=== PATIENT | female | born 1960 | race Caucasian/White ===

== ENCOUNTER 2016-08-23 08:16 | Emergency (ER) | payer BC ==
[~2016-08-23] VITALS: Ht 167.6 cm; Wt 68.0 kg
--- OUTSIDE RECORDS SUMMARY | 2016-08-23 08:20 | XMS REPORT ---
Author Author Charles Prieto Organization [employer] Address Unknown Phone Unavailable Care Team Providers Care Ocular Care Aide Name Role Phone Charles Prieto CP Unavailable Allergies No Known Allergies Problems Problem Type Condition Code Onset Dates Condition Status Problem Mitral stenosis I05.0 Active Problem Cardiac dysrhythmia I49.9 Active Problem Palpitations R00.2 Active Medications No Known Medications Results No Known Results Summary Purpose [employer] Submission
[2016-08-23] MEDS ORDERED: NITROGLYCERIN SUBLINGUAL 0.4 MG (NITROQUICK) TABLET SL PRN (08:35)
[2016-08-23] MEDS ORDERED: SODIUM CHLORIDE FLUSH 10 ML SYR IV PRN (08:35)
[2016-08-23] MEDS ORDERED: morphine INJ 4 MG/ML 1 ML SYRINGE IV PRN (08:35)
[2016-08-23] MEDS ORDERED: SODIUM CHLORIDE FLUSH 3 ML SYR IV PRN (08:35)
[2016-08-23] MEDS ORDERED: ASPIRIN 81 MG CHEW (CHILDREN'S ASA) PO ONE (08:35)
[2016-08-23] MEDS ORDERED: SODIUM CHLORIDE 250 ML IV PRN (08:35)
[2016-08-23 08:45] LABS: BASOPHILS % (AUTO) 0 % (0-2); EOSINOPHILS # (AUTO) 0.2 10^3uL; EOSINOPHILS % (AUTO) 2 % (0-4); LYMPHOCYTES # (AUTO) 2.1 X10^3; MEAN CORPUSCULAR HEMOGLOBIN 30.1 PG (26.0-34.0); MEAN CORPUSCULAR HGB CONC 33.1 g/dL (31.0-37.0); MEAN CORPUSCULAR VOLUME 91 FL (80-100); MEAN PLATELET VOLUME 10.1 FL (6.0-9.5); MONOCYTES # (AUTO) 0.7 X10^3; MONOCYTES % (AUTO) 9 % (3-11); NEUTROPHILS % (AUTO) 63 % (51-67); PLATELET COUNT 291 10^3uL (150-450); WHITE BLOOD COUNT 8.02 10^3uL (4.0-11.0)
[2016-08-23] MEDS ORDERED: DILTIAZEM IV FOR DRIP 125 MG in SODIUM CHLORIDE 100 ML IV PRN (08:50)
[2016-08-23] MEDS ORDERED: DILTIAZEM 25 MG/5 ML (CARDIZEM) VIAL IV ONE (08:50)
[2016-08-23] MEDS ORDERED: ENOXAPARIN 80 MG/0.8 ML (LOVENOX) SYR SC ONE (08:50)
[2016-08-23 08:56] LABS: ALBUMIN 3.9 g/dL (3.4-5.0); ALKALINE PHOSPHATASE 106 U/L (38-126); ANION GAP 15.5 MEQ/L (3-15); BUN/CREATININE RATIO 23 (10-20); CALCULATED IONIZED CALCIUM 4.1 mg/dL (3.8-4.6); CREATINE KINASE 83 U/L (30-135); TOTAL PROTEIN 7.3 g/dL (6.4-8.5)
[2016-08-23] MEDS ORDERED: MULT-954 PO (09:26)
[2016-08-23] MEDS ORDERED: ESTR10TA VG (09:26)
[2016-08-23] MEDS ORDERED: OMEG300C3 PO (09:26)
--- NOTE | 2016-08-23 09:26 | Diagnostic Imaging Report ---
EXAMINATION: Chest radiograph, portable AP view. DATE: August 23, 2016. hours. INDICATION: 55-year-old female, atrial fibrillation. COMPARISON: None. FINDINGS: Heart size and mediastinal contours are unremarkable. There is no identified pneumothorax. There is no large pleural effusion. There is no identified focal airspace consolidation. IMPRESSION: No identified acute cardiopulmonary abnormality. Dictated by: Dictated on workstation # [id number]
--- NOTE | 2016-08-23 09:54 | NUR ---
cardizem increased to 15ml/hr per Dr. carroll
[2016-08-23 10:04] VITALS: BP 28/68
== END 2016-08-23 10:09 | disposition short-term general hospital (02) ==
LOC: ED 08:17
DX: I48.91 Unspecified atrial fibrillation (principal)
CPT/HCPCS: 36415; 71010; 80053; 82550; 82553; 83735; 83880; 84484; 85025; 85610; 85730; 93005; 96372; 96374; 99285; J1650; J7050; 93010; 99284

== ENCOUNTER → 2016-08-23 | Outpatient (CLI) | payer BC ==
[~2016-08-23] MED LIST: ESTR10TA VG; MULT-954 PO; OMEG300C3 PO
== END ==
LOC: EMS 10:10
PROVIDERS: ATTEND Family Medicine
DX: I48.91 Unspecified atrial fibrillation (principal)

== ENCOUNTER 2016-08-26 09:11 | Outpatient (RCR) | payer BC | END 2016-11-24 | disposition home or self-care (01) | LOC: LAB 09:11 → EDSTATUS 09:11 | PROVIDERS: ATTEND Nurse Practitioner Family | DX: I48.91 Unspecified atrial fibrillation (principal) | CPT/HCPCS: 36415; 85610 ==

== ENCOUNTER → 2016-11-24 | Outpatient (CLI) | payer BC ==
--- NOTE | 2016-11-25 19:16 | Diagnostic Imaging Report ---
INDICATION: Digital screening mammography bilateral with CAD The current study was also evaluated with a Computer Aided Detection (CAD) system. Comparison is made to previous studies of 07/14/2013 and 11/05/2015. There is moderate breast parenchymal density, bilaterally. Asymmetries in the upper-outer quadrants of both breast are again noted. There is no evidence of new dominant mass or suspicious calcification. IMPRESSION: Benign mammograms. Physical examination and annual mammographic followup are recommended. ACR BI-RADS Category 2: Benign findings. Result letter will be mailed to the patient. Note: At least 10% of breast cancer is not imaged by mammography. Dictated by: Dictated on workstation # [id number]
== END ==
LOC: RAD 10:13
PROVIDERS: ATTEND Family Medicine
DX: Z12.31 Encounter for screening mammogram for malignant neoplasm of breast (principal)

== ENCOUNTER 2016-12-01 10:29 | Outpatient (RCR) | payer BC | END 2017-01-20 19:20 | disposition home or self-care (01) | LOC: LAB 10:29 | PROVIDERS: ATTEND Nurse Practitioner Family | DX: I48.91 Unspecified atrial fibrillation (principal) | CPT/HCPCS: 36415; 85610 ==

== ENCOUNTER → 2017-01-19 | Outpatient (CLI) | payer BC | LOC: LAB 11:02 | PROVIDERS: ATTEND Nurse Practitioner Family | DX: I48.91 Unspecified atrial fibrillation (principal) | CPT/HCPCS: 36415; 85610 ==